=== PATIENT | male | born 1945 | race Caucasian/White ===

== ENCOUNTER → 2020-04-01 | Outpatient (CLI) | payer OTHER ==
--- NOTE | 2020-04-01 16:02 | RADIOLOGY REPORT (SQ) ---
EXAM DESCRIPTION: U/S RETROPERITON (RENAL/AORTA) IMAGES COMPLETED DATE/TIME: 04/01/2020 12:52 pm REASON FOR STUDY: W/PVR CKD IV (N18.4), PROSTATISM (N40.0) I10 ESSENTIAL (PRIMARY) HYPERTENSION R01.1 CARDIAC MURMUR, UNSPECIFIED I25.10 ATHSCL HEART DISEASE OF [place] CORONARY ARTERY W/O AN COMPARISON: None. TECHNIQUE: Dynamic and static grayscale images acquired of the kidneys and bladder and recorded on P ACS. Additional selected color Doppler and spectral images recorded. LIMITATIONS: None. FINDINGS: RIGHT KIDNEY: Normal size. Increased cortical echotexture. No solid or suspicious mas ses. Moderate hydronephrosis. No calcifications. LEFT KIDNEY: Normal size. Increased cortical echotexture. 2.5 cm upper pole cyst. Moderate hydr onephrosis. No hydronephrosis. No calcifications. BLADDER: Postvoid residual over 1 L. OTHER FINDINGS: No other significant finding. IMPRESSION: Bladder outlet obstruction. TECHNICAL DOCUMENTATION: JOB ID: [id number] 2010 [employer]- All Rights Reserved Reading location - IP/workstation name: [email or web address]
== END ==
LOC: SP 09:17
PROVIDERS: ATTEND Internal Medicine
DX: N40.0 Benign prostatic hyperplasia without lower urinary tract symptoms (principal); I12.9 Hypertensive chronic kidney disease with stage 1 through stage 4 chronic kidney disease, or unspecified chronic kidney disease; N18.4 Chronic kidney disease, stage 4 (severe); I25.10 Atherosclerotic heart disease of native coronary artery without angina pectoris; R01.1 Cardiac murmur, unspecified; I48.20 Chronic atrial fibrillation, unspecified
CPT/HCPCS: 76770; 93306